=== PATIENT | female | born 1960 | race Caucasian/White ===

== ENCOUNTER → 2018-09-12 | Outpatient (CLI) | payer SELFPAY ==
[2018-09-12 18:06] LABS: FREE T3 3.52 pg/mL (2.77-5.27); FREE T4 (FREE THYROXINE) 1.67 ng/dL (0.78-2.19)
[2018-09-12 20:03] LABS: THYROID STIMULATING HORMONE 0.23 uIU/mL (0.47-4.68)
== END ==
LOC: OD 15:17
PROVIDERS: ATTEND Surgery
DX: E04.1 Nontoxic single thyroid nodule (principal)
CPT/HCPCS: 36415; 84439; 84443; 84481

== ENCOUNTER 2018-10-15 23:05 | Emergency (ER) | payer SELFPAY ==
[2018-10-15 23:24] VITALS: BP 116/78
[2018-10-15] MEDS ORDERED: HYDROMORPHONE HCL INJ/PF 2 MG/ML AMPULE IM ONE (23:38)
--- NOTE | 2018-10-15 23:52 | ER Document Report ---
ED General - General Chief Complaint: Fall Stated Complaint: FALL Time Seen by Provider: 10/15/18 23:31 Primary Care Provider: JORGE LUIS DE LEON MD [Primary Care Provider] - Follow up as needed Notes: Patient is a pleasant 58-year-old female who presents with complaint of pain that is in her left knee. She has swelling around the medial aspect the left knee and up to the superior aspect left knee. Patient says that she was getting off a roof and onto a ladder when she fell down the ladder and landed onto her left leg and hit her head. She did pass out. She said she originally had some swelling to the back of her head but that has since gone away. No new neck pain. No thoracic back pain. Does have some pain into the lumbar spine. No weakness or numbness into extremities. Injury happened at 1:30 PM. She has been pushed around in a walker by her because she cannot bear weight on her leg. She denies upper extremity pain. No right lower extremity pain. No chest or abdominal tenderness. - Related Data Allergies/Adverse Reactions: pneumococcal vaccine [Pneumococcal Vaccine] Allergy (Verified 10/15/18 23:20) Past Medical History - Social History Smoking Status: Current Every Day Smoker Frequency of alcohol use: None Drug Abuse: None Family History: DM, Other - depression, seizures - Past Medical History Cardiac Medical History: Comment Only: Hx Hypertension - no dx Pulmonary Medical History: Reports: Hx Asthma, Hx Bronchitis, Hx COPD, Hx Pneumonia Endocrine Medical History: Reports: Hx Hypothyroidism Musculoskeletal Medical History: Reports Hx Arthritis - back,elbows,knees,hands Psychiatric Medical History: Reports: Hx Anxiety, Hx Bipolar Disorder, Hx Post Traumatic Stress Disorder Past Surgical History: Reports: Hx Cholecystectomy. Denies: Hx Pacemaker - Immunizations Immunizations up to date: Yes Hx Diphtheria, Pertussis, Tetanus Vaccination: Yes Hx Pneumococcal Vaccination: 10/07/11 Review of Systems - Review of Systems Notes: My Normal Review Basic REVIEW OF SYSTEMS: CONSTITUTIONAL : Denies fever, chills, or sweats. Denies recent illness. RESPIRATORY: Denies cough, cold, or chest congestion. Denies shortness of breath, difficulty breathing, or wheezing. GASTROINTESTINAL: Denies abdominal pain. Denies nausea, vomiting, or diarrhea. GENITOURINARY: Denies difficulty urinating, painful urination, burning, frequency, or blood in urine. MUSCULOSKELETAL: low back pain. Left knee and ankle pain. SKIN: Denies rash or skin lesions. NEUROLOGICAL: Loss of consciousness after hitting head. Mild headache. Denies weakness or paralysis or loss of use of either side. Denies problems with gait or speech. Denies sensory or motor loss. ALL OTHER SYSTEMS REVIEWED AND NEGATIVE. Physical Exam - Vital signs Vitals: Temp Pulse Resp BP Pulse Ox 98.6 F 92 16 116/78 94 10/15/18 23:23 10/15/18 23:23 10/15/18 23:23 10/15/18 23:23 10/15/18 23:23 - Notes Notes: General Appearance: Well nourished, alert, cooperative, no acute distress, moderate obvious discomfort. Vitals: reviewed, See vital signs table. Head: no swelling or tenderness to the head Eyes: PERRL, EOMI, Conjuctiva clear Mouth: No decreasd moisture Throat: No tonsillar inflammation, No airway obstruction, No lymphadenopathy Neck: Supple, patient does not have any significant cervical spine tenderness to palpation. No step-offs or deformities. Lungs: No wheezing, No rales, No rhonci, No accessory muscle use, good air exchange bilaterally. Heart: Normal rate, Regular rythm, No murmur, no rub Abdomen: No reproducible pain palpation of abdomen. Thoracic spine is not tender to palpation. No step-offs or deformities. Patient does have some pain to palpation of her lumbar spine. Extremities: good pulses in all extremities, obvious swelling over the proximal tibia especially on the medial side. Severe tenderness anytime I attempt to touch his area. Patella is midline. No deformity the patella. No pain to palpation of the left hip. He has pain with movement of the left ankle but does not have a specific area of tenderness to palpation. Right lower extremity is nontender. Upper extremities have full range of motion without tenderness. Pelvis stable nontender. Skin: warm, dry, appropriate color, no rash Neuro: speech clear, oriented x 3, normal affect, responds appropriately to questions. Cranial nerves II through XII are intact. Distal sensation intact. Patient moves all extremities without difficulty. Course - Re-evaluation Re-evalutation: 10/16/18 02:28 Patient has not tibial plateau fracture. I will place her knee immobilizer and give her crutches. I informed her the importance of following up with orthopedics. I will refer her to a local orthopedist, Dr. Arroyo. I encouraged her to have a low threshold to return to ER if she has worsening pain, worsening swelling, weakness or numbness into her foot, or she feels that she is worsening in any way. Patient agrees with plan and will be discharged home. I explained to her the extreme importance of her not bearing weight on her leg until cleared by the orthopedist. Dictation of this chart was performed using voice recognition software; therefore, there may be some unintended grammatical errors. - Vital Signs Vital signs: Temp Pulse Resp BP Pulse Ox 98.6 F 92 16 116/78 94 10/15/18 23:23 10/15/18 23:23 10/15/18 23:23 10/15/18 23:23 10/15/18 23:23 Procedures - Immobilization Left Knee Pre-Proc Neuro Vasc Exam: Normal Immobilizer type: Knee immobilizer Performed by: PCT Post-Proc Neuro Vasc Exam: Normal Discharge - Discharge Clinical Impression: Tibial plateau fracture, left Qualifiers: Encounter type: initial encounter Fracture type: closed Qualified Code(s): S82.142A - Displaced bicondylar fracture of left tibia, initial encounter for closed fracture Condition: Good Disposition: HOME, SELF-CARE Additional Instructions: You have a tibial plateau fracture. This is a fracture through the top part of your tibia. It is important that you follow-up with orthopedic surgeon. I referred you to Dr. Arroyo. Please follow-up with him. We will give you copy of your CT scan on a CD so that you can bring this with you to your appointment. Please continue to wear the knee immobilizer for support. Please use crutches and do not bear any weight on your left leg. Please return to the ER if you have intractable pain, numbness or weakness into your foot or leg, or if you feel you are worsening in any way. Prescribed you stronger pain medicine called Stratford. Please take this sparingly only when you have intense pain not improved with over the counter pain medicine. Please be aware that Stratford does have Tylenol (acetaminophen) in it. Please make sure you do not take more than 4000 mg of acetaminophen a day. Do not drive or care for children after you have taken this medication they will make you sleepy and sometimes impair judgment. Prescriptions: Hydrocodone/Acetaminophen [Stratford 5-325 mg Tablet] 1 tab PO Q6 PRN #12 tablet PRN Reason: For Breakthrough Pain Referrals: MARIE ARROYO MD [ACTIVE STAFF] - Follow up in 3-5 days
--- NOTE | 2018-10-16 00:28 | RADIOLOGY REPORT (SQ) ---
EXAM DESCRIPTION: CT HEAD WITHOUT IV CONTRAST COMPLETED DATE/TME: 10/15/2018 23:38 CLINICAL HISTORY: 58 years, Female, trauma / 10ft fall COMPARISON: None. TECHNIQUE: 186 Images stored on PACS. All CT scanners at this facility use dose modulation, iterative reconstruction, and/or weight based dosing when appropriate to reduce radiation dose to as low as reasonably achievable (ALARA). [facility]: Dose Right [facility]: CareDose [facility]: Dose Right [facility]: Teradose 4D [facility]: In[employer]ver LIMITATIONS: None. FINDINGS: The globes are intact. Polyps of the left maxillary sinus. No displaced or depressed skull fracture. No intra or extra-axial hemorrhage. CT is limited for evaluation of acute infarct. No CT evidence for large or territorial acute infarct. No mass. No midline shift IMPRESSION: No acute intracranial abnormality TECHNICAL DOCUMENTATION: Quality ID # [id number]: Final reports with documentation of one or more dose reduction techniques (e.g., Automated exposure control, adjustment of the mA and/or kV according to patient size, use of iterative reconstruction technique) copyright 2011 [employer]- All Rights Reserved
--- NOTE | 2018-10-16 00:33 | RADIOLOGY REPORT (SQ) ---
EXAM DESCRIPTION: CT LUMBAR SPINE WITHOUT IV CONTRAST COMPLETED DATE/TME: 10/15/2018 23:38 CLINICAL HISTORY: trauma / 10 ft fall COMPARISON: None available TECHNIQUE: Axial CT of the lumbar spine obtained without contrast. FINDINGS: Alignment of the lumbar spine is maintained without evidence of subluxation. No fracture identified. Vertebral body height preserved. Prevertebral soft tissues are unremarkable. Intervertebral disc height preserved at L1/2, L2/3, and L3/L4. L4/5: Mild loss of intervertebral disc height with broad-based posterior disc bulge. Ligamental flavum hypertrophy. No definite neural foraminal narrowing or central canal narrowing. L5/S1: Severe loss of intervertebral disc height with endplate spondylosis and facet arthropathy. Mild bilateral osseous neural foraminal narrowing. Aortoiliac atherosclerosis. No pneumothorax in the visualized lung bases. Non obstructing right-sided nephrolithiasis. DLP: 1299.21 mGy-cm IMPRESSION: 1. No acute fracture or subluxation of the lumbar spine. 2. Multilevel degenerative change of the lumbar spine, most severe at L5/S1. This exam was performed according to our departmental dose-optimization program, which includes automated exposure control, adjustment of the mA and/or kV according to patient size and/or use of iterative reconstruction technique.
--- NOTE | 2018-10-16 00:53 | RADIOLOGY REPORT (SQ) ---
EXAM DESCRIPTION: XR ANKLE 3 OR MORE VIEWS COMPLETED DATE/TME: 10/15/2018 23:38 CLINICAL HISTORY: 58 years, Female, trauma COMPARISON: None. NUMBER OF VIEWS: 3 TECHNIQUE: 3 view left ankle LIMITATIONS: None. FINDINGS: Osteopenia. Negative for acute fracture or dislocation. Ankle mortise is intact IMPRESSION: No acute abnormality copyright 2010 [email or web address]- All Rights Reserved
--- NOTE | 2018-10-16 00:53 | RADIOLOGY REPORT (SQ) ---
EXAM DESCRIPTION: XR KNEE 4 OR MORE VIEWS COMPLETED DATE/TME: 10/15/2018 23:38 CLINICAL HISTORY: 58 years, Female, trauma COMPARISON: None. NUMBER OF VIEWS: 4 TECHNIQUE: 4 views of the left knee LIMITATIONS: None. FINDINGS: Osteopenia. No visible fracture line, however there is suggestion of lipohemarthrosis on the lateral view, concerning for occult/underlying fracture. No dislocation. IMPRESSION: Lipohemarthrosis seen on the lateral view, concerning for underlying fracture. Consider follow-up with CT. Osteopenia. copyright 2010 [employer]- All Rights Reserved
[2018-10-16] MEDS ORDERED: HYDROMORPHONE HCL INJ/PF 2 MG/ML AMPULE IM ONE (01:06)
--- NOTE | 2018-10-16 02:10 | RADIOLOGY REPORT (SQ) ---
EXAM DESCRIPTION: CT LOWER EXTREMITY WITHOUT IV CONTRAST COMPLETED DATE/TME: 10/16/2018 01:03 CLINICAL HISTORY: Pain. 58 years Female, left knee trauma COMPARISON: Same day, CR. Technique: No IV contrast. Coronal and sagittal reformat. 3d reconstruction. This exam was performed according to our departmental dose-optimization program, which includes automated exposure control, adjustment of the mA and/or kV according to patient size and/or use of iterative reconstruction technique. [facility]: Dose Right [facility]: CareDose [facility]: Dose Right [facility]: Teradose 4D [facility]: [employer] LIMITATIONS: None Findings: 1.3 cm fracture at the posterior aspect of the lateral tibial plateau with 0.2 cm impaction and moderate hemarthrosis. 0.7 x 0.2 cm avulsive fragmentation and/or loose body at the medial aspect of the lateral femoral condyle at the intercondylar notch. Bones, joints, and soft tissues of the CT left knee WITHOUT IV CONTRAST appear otherwise intact. IMPRESSION: 1. Acute osteochondral impaction fracture of the posterior lateral left tibial plateau. 2. Small avulsive fragment at the intercondylar notch associated with the lateral femoral condyle. Left ACL injury suspected. 3. Moderate hemarthrosis of the left knee.
[2018-10-16] MEDS ORDERED: HYDROCODONE/ACETAMINOPHEN 5-325 MG (6 TAB/ER DISP) PO PRN (02:25)
== END 2018-10-16 02:40 | disposition home or self-care (01) ==
LOC: ER 23:05
DX: S82.142A Displaced bicondylar fracture of left tibia, initial encounter for closed fracture (principal); M54.5 Low back pain; R22.0 Localized swelling, mass and lump, head; J44.9 Chronic obstructive pulmonary disease, unspecified; E03.9 Hypothyroidism, unspecified; M19.90 Unspecified osteoarthritis, unspecified site; F31.9 Bipolar disorder, unspecified; F43.10 Post-traumatic stress disorder, unspecified; Z88.7 Allergy status to serum and vaccine; F17.200 Nicotine dependence, unspecified, uncomplicated; Z90.49 Acquired absence of other specified parts of digestive tract
CPT/HCPCS: 99284; 96372; 73610; 73564; 70450; 72131; 73700; L1830; L0120; J1170 ×2